=== PATIENT | female | born 1960 | race Caucasian/White ===

== ENCOUNTER → 2017-08-02 | Outpatient (CLI) | payer OTHER ==
--- NOTE | 2017-08-02 09:49 | RAD ---
Indication dysfunctional uterine bleeding. Reportedly the patient's last menstrual period was 6 months ago. It is uncertain whether the patient is perimenopausal or postmenopausal. Reportedly the patient has been bleeding for 2 weeks. Initially transabdominal scans were obtained. The initial transabdominal scans were supplemented with transvaginal scans. The uterus measures approximately 10.7 x 5.8 x 7.2 cm. The endometrium is best demonstrated on the transabdominal images and measures approximately 2.4 cm in thickness. This is markedly thickened for a postmenopausal woman. Malignancy is not excluded. The endometrium has a heterogeneous appearance on the transvaginal scans. Neither ovary was seen. IMPRESSION: Thickened endometrium. See above discussion. Nonvisualization of the ovaries
== END | disposition home or self-care (01) ==
LOC: US 08:43
PROVIDERS: ATTEND Physician Assistant Medical
DX: N93.8 Other specified abnormal uterine and vaginal bleeding (principal); R93.8 Abnormal findings on diagnostic imaging of other specified body structures
CPT/HCPCS: 76830; 76856

== ENCOUNTER 2017-08-04 18:48 | Emergency (ER) | payer OTHER ==
[~2017-08-04] VITALS: Ht 170.2 cm; Wt 122.9 kg
--- NOTE | 2017-08-04 19:05 | PHYS DOC ---
Adult General HPI HPI Patient is a 56 year old F who presents with weakness and a fall. Patient's called EMS because the patient had fallen and she cannot get up. Patient complained of left knee pain. Patient states she fell her left knee and has excruciating pain and she is unable to get up and walk on it. Patient is on Xeralto secondary to history of A. fib. Patient was seen yesterday for increased vaginal bleeding and had an ultrasound done of the pelvis which was unremarkable other than some thickened endometrium. Patient describes generalized weakness for the past couple days. Patient denies any fevers. Patient denies any chest pain or shortness of breath. Patient describes some generalized abdominal pain associated with this vaginal bleeding. Patient has no other complaints. Review of Systems Review of Systems GEN: Generalized weakness HEENT: Denies blurred vision, sore throat CV: Denies chest pain RESP: Denies shortness of air, cough GI: Abdominal pain NEURO: Denies confusion, dizziness MSK: Left knee pain Physical Exam Physical Exam GEN.: No apparent distress. Alert and oriented. HEENT: Head is normocephalic, atraumatic NECK: Supple. LUNGS: CTAB. HEART: Irregular irregular, S1, S2 present. Peripheral pulses intact ABDOMEN: Soft, mild generalized tenderness, no rebound tenderness, no abdominal distention, no guarding. Positive bowel sounds. EXTREMITIES: Without any cyanosis. Tenderness palpation over left knee with decreased range of motion secondary to pain, patient has a midline scar to her left knee from her previous total knee replacement, left lower extremity is neurovascular intact NEUROLOGIC: Normal speech, normal tone, cranial nerves II through XII are grossly intact without any focal neurological deficits PSYCHIATRIC: Tearful SKIN: No ulcerations Current Patient Data Vital Signs Laboratory Tests Test 08/04/17 19:05 White Blood Count 18.2 x10^3/uL Red Blood Count 2.23 x10^6/uL Hemoglobin 7.0 g/dL Hematocrit 20.8 % Mean Corpuscular Volume 93 fL Mean Corpuscular Hemoglobin 32 pg Mean Corpuscular Hemoglobin Concent 34 g/dL Red Cell Distribution Width 14.9 % Platelet Count 263 x10^3/uL Neutrophils (%) (Auto) 81 % Lymphocytes (%) (Auto) 11 % Monocytes (%) (Auto) 8 % Eosinophils (%) (Auto) 0 % Basophils (%) (Auto) 0 % Neutrophils # (Auto) 14.7 x10^3uL Lymphocytes # (Auto) 1.9 x10^3/uL Monocytes # (Auto) 1.5 x10^3/uL Eosinophils # (Auto) 0.0 x10^3/uL Basophils # (Auto) 0.1 x10^3/uL Segmented Neutrophils % 85 % Lymphocytes % 6 % Monocytes % 8 % Basophils % 1 % Platelet Estimate Adequate Polychromasia Present Hypochromasia Present Microcytosis Present Sodium Level 141 mmol/L Potassium Level 3.4 mmol/L Chloride Level 100 mmol/L Carbon Dioxide Level 28 mmol/L Anion Gap 13 Blood Urea Nitrogen 25 mg/dL Creatinine 0.9 mg/dL Estimated GFR (Cockcroft-Gault) 64.8 BUN/Creatinine Ratio 28 Glucose Level 123 mg/dL Lactic Acid Level 2.8 mmol/L Calcium Level 8.2 mg/dL Magnesium Level 1.8 mg/dL Total Bilirubin 0.5 mg/dL Aspartate Amino Transf (AST/SGOT) 17 U/L Alanine Aminotransferase (ALT/SGPT) 24 U/L Alkaline Phosphatase 80 U/L Troponin I Quantitative < 0.017 ng/mL Total Protein 6.4 g/dL Albumin 3.1 g/dL Albumin/Globulin Ratio 0.9 Digoxin Level 0.7 ng/dL Digoxin Last Dose Date 08/04/17 Digoxin Last Dose Time 0500 Current Medications Medications (Trade) Dose Ordered Sig/Damaris Route PRN Reason Start Time Stop Time Status Last Admin Dose Admin Iohexol (Omnipaque 300 Mg/ml) 75 ml 1X ONCE IV 08/04/17 19:15 08/04/17 19:16 DC 08/04/17 20:15 Fentanyl Citrate (Fentanyl 2ml Vial) 50 mcg 1X ONCE IV 08/04/17 19:45 08/04/17 19:46 DC 08/04/17 19:40 Fentanyl Citrate (Fentanyl 2ml Vial) 50 mcg 1X ONCE IV 08/04/17 21:45 08/04/17 21:46 DC 08/04/17 21:38 Ceftriaxone Sodium 1 gm/ Sodium Chloride 50 ml @ 100 mls/hr 1X ONCE IV 08/04/17 22:00 08/04/17 22:29 UNV Sodium Chloride 1,000 ml @ 1,000 mls/hr 1X ONCE IV 08/04/17 22:00 08/04/17 22:59 UNV 08/04/17 22:13 EKG EKG 191: EKG shows A. fib rate of 121 with RVR no STEMI[] Radiology/Procedures Radiology/Procedures CT scan of the head NAD CT scan abdomen pelvis: Impression: 1. Abnormal appearance to the uterus. The endometrial canal is expanded by fluid and soft tissue appearing material. The cervix may also be heterogeneous. Consequently, endometrial hyperplasia, endometrial carcinoma, or endometrial polyp are possible. Cervical cancer is not excluded. Recommend clinical correlation including with physical examination. 2. No acute intraperitoneal process identified.[] Course & Med Decision Making Course & Med Decision Making Pertinent Labs and Imaging studies reviewed. (See chart for details) ED course: Patient was seen and examined emergency room septic workup was ordered along with CT scan of the head, CT scan abdomen pelvis, x-ray of the left knee and x- ray of left knee and pelvis 2199: Updated patient on lab results and CT findings and the decision to transfer to [facility] for further evaluation and management along with consultation of LAUNCH OPERATOR for her anemia and vaginal bleeding. 2214: Discussed CC/HP/PMH with Dr. Payne and recommends admit MDM: After reviewing the chart, CC/HPI/PMH, physical exam, [lab results], [ radiological results], I believe the patient has severe anemia and blood loss from her vaginal bleeding that is requiring admission to the hospital. Patient be transferred to [facility] for consultation with LAUNCH OPERATOR and will be admitted to medicine. We'll stops all blood thinners at this time. Patient stable for transfer. Patient did have elevated white count and lactic acid therefore prophylactic antibiotics have been started. [] Dragon Disclaimer Dragon Disclaimer This chart was dictated in whole or in part using Voice Recognition software in a busy, high-work load, and often noisy Emergency Department environment. It may contain unintended and wholly unrecognized errors or omissions. Departure Departure: Impression: Primary Impression: Vaginal bleeding Additional Impressions: Anemia Leukocytosis Lactic acidosis Disposition: 02 XFER SHT-TRM HOSP (Dr. Payne at [facility]) Condition: STABLE Referrals: JOANA RALPH APRN (PCP) Problem Qualifiers PAUL WANG DO Aug 04, 2017 19:05
[2017-08-04] MEDS ORDERED: IOHEXOL 300 MG/ML 75 ML VIAL. IV ONE (19:15)
[2017-08-04 19:33] LABS: BASO # 0.1 x10^3/uL (0.0-0.2); BASO % 0 % (0-3); EOS % 0 % (0-3); HEMATOCRIT 20.8 % (36.0-47.0); LYMPH # 1.9 x10^3/uL (1.0-4.8); LYMPH % 11 % (24-48); MEAN CORPUSCULAR HEMOGLOBIN 32 pg (25-35); MEAN CORPUSCULAR HGB CONC 34 g/dL (31-37); MEAN CORPUSCULAR VOLUME 93 fL (79-100); MONO # 1.5 x10^3/uL (0.0-1.1); MONO % 8 % (0-9); NEUT # 14.7 x10^3uL (1.8-7.7); NEUT % 81 % (31-73); PLATELET COUNT 263 x10^3/uL (140-400); RED BLOOD COUNT 2.23 x10^6/uL (3.50-5.40); RED CELL DISTRIBUTION WIDTH 14.9 % (11.5-14.5); WHITE BLOOD COUNT 18.2 x10^3/uL (4.0-11.0)
[2017-08-04 19:47] LABS: ALBUMIN 3.1 g/dL (3.4-5.0); ALBUMIN/GLOBULIN RATIO 0.9 (1.0-1.7); ALK PHOS 80 U/L (46-116); ALT (SGPT) 24 U/L (14-59); ANION GAP 13 (6-14); AST (SGOT) 17 U/L (15-37); BLOOD UREA NITROGEN 25 mg/dL (7-20); BUN/CREATININE RATIO 28 (6-20); CALCIUM 8.2 mg/dL (8.5-10.1); CARBON DIOXIDE 28 mmol/L (21-32); CHLORIDE 100 mmol/L (98-107); CREATININE 0.9 mg/dL (0.6-1.0); DIG 0.7 ng/dL (0.9-2.0); GFR 64.8; GLUCOSE 123 mg/dL (70-99); POTASSIUM 3.4 mmol/L (3.5-5.1); SODIUM 141 mmol/L (136-145); TOTAL BILIRUBIN 0.5 mg/dL (0.2-1.0); TOTAL PROTEIN 6.4 g/dL (6.4-8.2)
--- NOTE | 2017-08-04 20:36 | RAD ---
CT head without intravenous contrast History: Fall, weakness. Comparison: None. Technique: Axial images are obtained of the head from the skull base through the vertex without IV contrast. Exposure: One or more of the following individualized dose reduction techniques were utilized for this examination: 1. Automated exposure control 2. Adjustment of the mA and/or kV according to patient size 3. Use of iterative reconstruction technique Findings: The ventricles are appropriate in size, shape, and location for the patient's age. No obvious intracranial mass, mass-effect, midline shift, hemorrhage or obvious acute infarction is identified. Basilar cisterns are patent. Bone windows demonstrate no acute calvarial abnormality. The visualized paranasal sinuses appear clear. Impression: No acute intracranial process. Please note that CT can be relatively insensitive to acute ischemic infarction for up to 24 hours after symptom onset. Electronically signed by: Twin Day MD (08/04/2017 8:33 PM) [facility]
--- NOTE | 2017-08-04 20:43 | RAD ---
CT Abdomen and Pelvis With Intravenous Contrast: History: Fall, vaginal bleeding. Comparison: None. Technique: After administration of intravenous contrast administration, 75 mL Omnipaque-300, CT of the abdomen and pelvis was performed. Exposure: One or more of the following individualized dose reduction techniques were utilized for this examination: 1. Automated exposure control 2. Adjustment of the mA and/or kV according to patient size 3. Use of iterative reconstruction technique Findings: Evaluation of enteric structures may be limited by lack of oral contrast. Liver, spleen, pancreas, gallbladder, and bilateral adrenal glands unremarkable. Bilateral kidneys enhance symmetrically. Both kidneys demonstrate calcifications, which maybe parenchymal and/or milk of calcium. Right renal cysts are seen. No bowel obstruction or inflammation is identified. Appendix is without evidence of inflammation. No free air free fluid is seen in the abdomen or pelvis. The uterus has abnormal appearance. Endometrial canal is expanded by fluid and soft tissue appearing material which could measure up to 3.6 cm in thickness. The cervix may be a heterogeneous as well. A few small uterine leiomyomata are present. Impression: 1. Abnormal appearance to the uterus. The endometrial canal is expanded by fluid and soft tissue appearing material. The cervix may also be heterogeneous. Consequently, endometrial hyperplasia, endometrial carcinoma, or endometrial polyp are possible. Cervical cancer is not excluded. Recommend clinical correlation including with physical examination. 2. No acute intraperitoneal process identified. Electronically signed by: Twin Day MD (08/04/2017 8:40 PM) [facility]
[2017-08-04 21:08] LABS: % BASOS 1 % (0-3); % LYMPHS 6 % (24-48); % MONOS 8 % (0-10); % SEGS 85 % (35-66)
[2017-08-04 21:10] LABS: POLYCHROMASIA PRESENT
[2017-08-04 21:11] LABS: PLT ESTIMATE ADEQUATE (ADEQUATE)
[2017-08-04 21:16] LABS: HYPOCHROMIA PRESENT; MICROCYTOSIS PRESENT
[2017-08-04] MEDS ORDERED: IV NORMAL SALINE 1,000ML 1,000 ML IV ONE (22:00)
[2017-08-04] MEDS ORDERED: cefTRIAXone SODIUM 1 GM VIAL IV ONE (22:17)
[2017-08-04] MEDS ORDERED: IV NORMAL SALINE 50ML 50 ML ONE (22:18)
[2017-08-04 22:44] LABS: BACTERIA,URINE 0 /HPF (0-FEW); BILIRUBIN,URINE NEG (NEG); CLARITY,URINE HAZY; COLOR,URINE AMBER; GLUCOSE,URINE NEG (NEG); NITRITE,URINE NEG (NEG); SQUAMOUS EPITHELIAL CELL,UR FEW /LPF; UROBILINOGEN,URINE 0.2 mg/dL (0.2 mg/dL); WBC,URINE OCC /HPF (0-4)
[2017-08-05 00:42] VITALS: BP 102/59
--- NOTE | 2017-08-05 08:01 | RAD ---
Indication fall, pain. AP oblique and lateral views of the left knee were obtained. There is a total knee replacement. No acute bony finding seen
--- NOTE | 2017-08-05 08:06 | RAD ---
Indication fall. Pelvic and hip pain. A single view of the pelvis was obtained. No acute or significant bony finding is seen on the single view submitted
--- NOTE | 2017-08-05 09:51 | EKG ---
[facility] [address] [place] [address] Test Date: 2017-08-04 Test Time: 19:12:16 Pat Name: KARLO DAMICO Department: Room: Gender: F Senior Business Manager: : 1960 Requested By: PAUL WANG Order Number: [id number] Reading MD: Measurements Intervals [place] Rate: P: FL: QRS: QRSD: T: QT: QTc: Interpretive Statements
== END 2017-08-05 01:11 | disposition short-term general hospital (02) ==
LOC: ER 18:48
DX: N93.9 Abnormal uterine and vaginal bleeding, unspecified (principal); M25.562 Pain in left knee; D64.9 Anemia, unspecified; D72.829 Elevated white blood cell count, unspecified; E87.2 Acidosis; I48.91 Unspecified atrial fibrillation
CPT/HCPCS: 36415; 51702; 70450; 72170; 73562; 74177; 80053; 80162; 81001; 83605; 83735; 84484; 85007; 85025; 87040; 93005; 96365; 96375; 96376; 99285; J0696; J3010; Q9967; J7030

== ENCOUNTER → 2018-07-01 | Outpatient (CLI) | payer OTHER ==
--- NOTE | 2018-07-01 13:57 | RAD ---
Left breast ultrasound, 07/01/2018: History: Abnormal screening mammogram. A targeted ultrasound exam of the left breast was performed at the 4:00 location. Approximately 4 cm from the nipple at the 5:00 location there is an elongated nearly anechoic structure measuring 10 x 3 x 2 mm. It is wider than tall. Its margins are smooth. There is no internal color flow. The features suggest a cyst. At the 4:00 location approximately 7 cm from the nipple there is an 11 x 3 x 4 mm nodule which contains cystic and echogenic components. The appearance is suggestive of a cyst cluster or complicated cyst. It is wider than tall. There is no posterior acoustic shadowing. This probably corresponds to the mammographic abnormality, however, that cannot be stated with certainty. IMPRESSION: 1. Benign-appearing cyst at the 5:00 location. 2. Cyst cluster or complicated cyst at the 4:00 location, probably corresponding to the mammographic finding. 3. Follow-up left mammography and left breast ultrasound in 6 months is suggested. BI-RADS 3-probably benign finding
== END | disposition home or self-care (01) ==
LOC: US 13:02
PROVIDERS: ATTEND Physician Assistant Medical
DX: R92.8 Other abnormal and inconclusive findings on diagnostic imaging of breast (principal); Z86.2 Personal history of diseases of the blood and blood-forming organs and certain disorders involving the immune mechanism
CPT/HCPCS: 76641

== ENCOUNTER → 2019-07-14 | Outpatient (CLI) | payer OTHER ==
--- NOTE | 2019-07-14 17:27 | RAD ---
DATE: 07/14/2019 EXAM: MAMMO RADHA WELSHAT, BREAST LEFT HISTORY: Abnormal mammogram, abnormal ultrasound of the left breast COMPARISON: 11/26/2014, 06/19/2016, 06/27/2018 screening mammographic exams, left breast ultrasound exam dated 07/01/2018 This study was interpreted with the benefit of Computerized Aided Detection (CAD). Breast Density: SCATTERED The breast parenchyma shows scattered fibroglandular densities. Breast parenchyma level B. FINDINGS: There are no suspicious calcifications, masses, or distortion. Previously evident left breast focal asymmetry is no longer seen. Limited left breast ultrasound examination was performed at the 4:00 region and 5:00 region. No suspicious mass or cyst identified to correspond with previous findings. IMPRESSION: Resolution of previously seen left breast findings. BI-RADS CATEGORY: 1 NEGATIVE RECOMMENDED FOLLOW-UP: 12M 12 MONTH FOLLOW-UP PQRS compliance statement: Patient information was entered into a reminder system with a target due date in one year for the next mammogram. Mammography is a sensitive method for finding small breast cancers, but it does not detect them all and is not a substitute for careful clinical examination. A negative mammogram does not negate a clinically suspicious finding and should not result in delay in biopsying a clinically suspicious abnormality. "Our facility is accredited by the [employer] Mammography [employer]."
== END | disposition home or self-care (01) ==
LOC: MAMMO 12:34
PROVIDERS: ATTEND Physician Assistant Medical
DX: R92.8 Other abnormal and inconclusive findings on diagnostic imaging of breast (principal)
CPT/HCPCS: 76641; 77066; G0279; 77062

== ENCOUNTER → 2020-03-18 | Outpatient (CLI) | payer OTHER ==
[2020-03-18 08:23] LABS: BASO % 0 % (0-3); EOS # 0.2 x10^3/uL (0.0-0.7); EOS % 2 % (0-3); HEMATOCRIT 37.9 % (36.0-47.0); HEMOGLOBIN 12.5 g/dL (12.0-15.5); LYMPH # 1.2 x10^3/uL (1.0-4.8); LYMPH % 16 % (24-48); MEAN CORPUSCULAR HEMOGLOBIN 32 pg (25-35); MEAN CORPUSCULAR HGB CONC 33 g/dL (31-37); MEAN CORPUSCULAR VOLUME 97 fL (79-100); MONO # 0.8 x10^3/uL (0.0-1.1); MONO % 11 % (0-9); NEUT # 5.4 x10^3uL (1.8-7.7); NEUT % 71 % (31-73); PLATELET COUNT 216 x10^3/uL (140-400); RED BLOOD COUNT 3.91 x10^6/uL (3.50-5.40); RED CELL DISTRIBUTION WIDTH 13.9 % (11.5-14.5); WHITE BLOOD COUNT 7.6 x10^3/uL (4.0-11.0)
[2020-03-18 08:29] LABS: ALBUMIN 3.4 g/dL (3.4-5.0); ALBUMIN/GLOBULIN RATIO 0.9 (1.0-1.7); CALCIUM 8.5 mg/dL (8.5-10.1); CREATININE 0.6 mg/dL (0.6-1.0); GFR 102.3; POTASSIUM 4.2 mmol/L (3.5-5.1); TOTAL BILIRUBIN 0.7 mg/dL (0.2-1.0)
== END ==
LOC: LAB 07:10
PROVIDERS: ATTEND Internal Medicine Cardiovascular Disease
DX: I10 Essential (primary) hypertension (principal)
CPT/HCPCS: 36415; 80053; 80061; 85025

== ENCOUNTER → 2020-08-02 | Outpatient (CLI) | payer OTHER ==
--- NOTE | 2020-08-07 10:41 | RAD ---
DATE: 08/02/2020 EXAM: MAMMO RADHA SCREENING BILATERAL HISTORY: Screening COMPARISON: 07/14/2019, 06/27/2018, 06/19/2016 This study was interpreted with the benefit of Computerized Aided Detection (CAD). Breast Density: SCATTERED The breast parenchyma shows scattered fibroglandular densities. Breast parenchyma level B. FINDINGS: No mass, suspicious calcification, or architectural distortion in either breast. IMPRESSION: No evidence of malignancy. BI-RADS CATEGORY: 1 NEGATIVE RECOMMENDED FOLLOW-UP: 12M 12 MONTH FOLLOW-UP PQRS compliance statement: Patient information was entered into a reminder system with a target due date 08/03/2021 for the next mammogram. Mammography is a sensitive method for finding small breast cancers, but it does not detect them all and is not a substitute for careful clinical examination. A negative mammogram does not negate a clinically suspicious finding and should not result in delay in biopsying a clinically suspicious abnormality. "Our facility is accredited by the [employer] Mammography Program."
== END ==
LOC: MAMMO 11:12
DX: Z12.31 Encounter for screening mammogram for malignant neoplasm of breast (principal)
CPT/HCPCS: 77063; 77067

== ENCOUNTER → 2021-05-06 | Outpatient (CLI) | payer OTHER ==
[2021-05-06 09:42] LABS: BASO % 1 % (0-3); EOS # 0.2 x10^3/uL (0.0-0.7); EOS % 2 % (0-3); HEMATOCRIT 40.8 % (36.0-47.0); HEMOGLOBIN 13.7 g/dL (12.0-15.5); LYMPH # 1.7 x10^3/uL (1.0-4.8); LYMPH % 17 % (24-48); MEAN CORPUSCULAR HEMOGLOBIN 33 pg (25-35); MEAN CORPUSCULAR HGB CONC 34 g/dL (31-37); MEAN CORPUSCULAR VOLUME 97 fL (79-100); MONO # 0.8 x10^3/uL (0.0-1.1); MONO % 8 % (0-9); NEUT # 7.2 x10^3uL (1.8-7.7); NEUT % 72 % (31-73); PLATELET COUNT 261 x10^3/uL (140-400); RED CELL DISTRIBUTION WIDTH 13.1 % (11.5-14.5)
[2021-05-06 10:08] LABS: ALBUMIN 3.6 g/dL (3.4-5.0); ALBUMIN/GLOBULIN RATIO 0.9 (1.0-1.7); CALCIUM 8.7 mg/dL (8.5-10.1); CREATININE 0.8 mg/dL (0.6-1.0); GFR 73.2; POTASSIUM 4.3 mmol/L (3.5-5.1); TOTAL BILIRUBIN 0.7 mg/dL (0.2-1.0); TOTAL PROTEIN 7.7 g/dL (6.4-8.2)
== END ==
LOC: LAB 08:17
PROVIDERS: ATTEND Internal Medicine Cardiovascular Disease
DX: I42.9 Cardiomyopathy, unspecified (principal)
CPT/HCPCS: 36415; 80053; 83880; 85025

== ENCOUNTER → 2021-06-17 | Outpatient (CLI) | payer OTHER ==
--- NOTE | 2021-06-17 17:08 | CARD ---
MR#: [id number] Date of Study: 06/17/2021 Ordering Physician: MICKEY MENENDEZ, Referring Physician: MICKEY MENENDEZ, Tech: Josse Guidry [facility] APPROVED REPORT EXAM: Two-dimensional and M-mode echocardiogram with Doppler and color Doppler. INDICATION Cardiomyopathy Surgery/Intervention ICD/Pacemaker: 2D DIMENSIONS Left Atrium(2D)4.5 (1.6-4.0cm)IVSd1.1 (0.7-1.1cm) Aortic Root(2D)3.1 (2.0-3.7cm)LVDd5.3 (3.9-5.9cm) LVOT Diameter2.0 (1.8-2.4cm)PWd1.1 (0.7-1.1cm) LVDs4.0 (2.5-4.0cm)FS (%) 24.9 % SV66.9 mlLVEF(%)48.8 (>50%) Aortic Valve AoV Peak Willi.122.4cm/sAoV VTI22.3cm AO Peak GR.6.0mmHgLVOT Peak Willi.111.1cm/s LVOT VTI 19.27cmAO Mean GR.3mmHg RHETT (VMAX)2.85qw2SOT (VTI)2.71cm2 Mitral Valve MV E Tlnxpfsr908.8cm/sMV E Peak Gr.4mmHg MV DECEL [id number] A Oprjkwli23.1cm/s MV E Mean Gr.2mmHgE/A Ratio3.9 Pulmonary Valve PV Peak Yzbrrrbg32.7cm/sPV Peak Grad.3mmHg Tricuspid Valve TR P. Guauoqsd550ty/sTR Peak Gr.14mmHg Pulmonary Vein S1 Axffxigi01.4cm/sD2 Degdwcyy14.0cm/s LEFT VENTRICLE The left ventricle is normal size. There is normal left ventricular wall thickness. The left ventricu lar systolic function is normal. The ejection fraction is 55%. There is normal LV segmental wall ned on. Tissue Doppler imaging reveals moderate left ventricular diastolic dysfunction. No left ventricle thrombus noted on this study. There is no ventricular septal defect visualized. There is no left juan tricular aneurysm. There is no mass noted in the left ventricle. RIGHT VENTRICLE The right ventricle is normal size. There is normal right ventricular wall thickness. The right ventr icular systolic function is normal. ATRIA The left atrium is moderately dilated. The right atrium is mildly dilated. The interatrial septum is intact with no evidence for an atrial septal defect or patent foramen ovale as noted on 2-D or Dopple r imaging. AORTIC VALVE The aortic valve is normal in structure and function. Doppler and Color Flow revealed no significant aortic regurgitation. There is no significant aortic valvular stenosis. There is no aortic valvular v egetation. MITRAL VALVE The mitral valve is normal in structure and function. There is no evidence of mitral valve prolapse. There is no mitral valve stenosis. Doppler and Color-flow revealed mild mitral regurgitation. TRICUSPID VALVE The tricuspid valve is normal in structure and function. Doppler and Color Flow revealed trace tricus pid valve regurgitation. There is no tricuspid valve prolapse or vegetation. There is no tricuspid va lve stenosis. PULMONIC VALVE The pulmonary valve is normal in structure and function. Doppler and Color Flow revealed no pulmonic valvular regurgitation. There is no pulmonic valvular stenosis. GREAT VESSELS The aortic root is normal in size. The ascending aorta is normal in size. The pulmonary artery is nor mal. The IVC is normal in size and collapses >50% with inspiration. PERICARDIAL EFFUSION There is no pleural effusion. There is no evidence of significant pericardial effusion. Critical Notification Critical Value: No <Conclusion> The left ventricular systolic function is normal. The ejection fraction is 55%. There is normal LV segmental wall motion. Pacer/ICD lead noted RA/RV. Mild mitral regurgitation. Trace tricuspid valve regurgitation. There is no evidence of significant pericardial effusion. Signed by : Sami Viramontes, Electronically Approved : 06/17/2021 17:07:32
== END ==
LOC: ECHO 10:33
PROVIDERS: ATTEND Internal Medicine Cardiovascular Disease
DX: I34.0 Nonrheumatic mitral (valve) insufficiency (principal); I42.9 Cardiomyopathy, unspecified
CPT/HCPCS: 93306